=== PATIENT | female | born 2000 | race Caucasian/White ===

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

== ENCOUNTER 2020-06-29 16:28 | Emergency (ER) | payer OTHER ==
[~2020-06-29] VITALS: Ht 170.2 cm; Wt 90.7 kg
== END 2020-06-29 17:40 | disposition home or self-care (01) ==
LOC: ER 16:28
DX: R07.9 Chest pain, unspecified (principal); R51.9 Headache, unspecified; M54.9 Dorsalgia, unspecified; V40.5XXA Car driver injured in collision with pedestrian or animal in traffic accident, initial encounter; Y92.410 Unspecified street and highway as the place of occurrence of the external cause
CPT/HCPCS: 71046; 99283-25

== ENCOUNTER 2021-06-30 22:31 | Emergency (ER) | payer SELFPAY ==
[~2021-06-30] VITALS: Ht 170.2 cm; Wt 90.7 kg
== END 2021-06-30 23:50 | disposition home or self-care (01) ==
LOC: ER 22:31
DX: K64.8 Other hemorrhoids (principal)
CPT/HCPCS: 82272; 99283